=== PATIENT | male | born 1980 | race Caucasian/White ===

== ENCOUNTER 2021-04-19 11:08 | Outpatient (CLI) | payer OTHER, SELFPAY ==
[2021-04-19 14:32] LABS: Liquefaction Semen Complete in 30 min. (<30 minutes); Semen Color Opaque (Grey-opaque); Semen Non-Progressive Motility 20 %; Semen Viscosity Not Increased (Not Increa.); Volume Semen 1.5 mL (1.5-5.0)
[2021-04-19 14:33] LABS: Semen Immotility 70 %; Semen Morphology Result to Follow; Semen Progressive Motility 10 % (>32); Semen Total Motility 30 (>40% (PM+NP)); Sperm Count 4.3 Mil/mL (60-150 million/mL)
[2021-04-25 21:54] LABS: Fructose, Semen 171 mg/dL (150-600)
== END 2021-04-19 11:09 | disposition home or self-care (01) ==
LOC: CHSLAB 11:15
PROVIDERS: PCP Family Medicine; Visit Provider Family Medicine
DX: E78.5 Hyperlipidemia, unspecified (principal); R74.8 Abnormal levels of other serum enzymes; N46.9 Male infertility, unspecified
CPT/HCPCS: 82757; 88160; 89320